=== PATIENT | male | born 1945 | race Caucasian/White ===

== ENCOUNTER 2021-08-11 11:48 | Outpatient (CLI) | payer MEDICARE, SELFPAY ==
--- NOTE | ~2021-08-11 | XR_ITS ---
EXAMINATION: XR lumbar spine 2-3V DATE: 08/11/2021 12:19 INDICATION: Low back pain TECHNIQUE: Anteroposterior and lateral views of the lumbar spine, and cone-down lateral view of the l umbosacral junction were obtained. COMPARISON: None. FINDINGS: There are 6 mm of retrolisthesis of L2 on L3 and 2 mm of anterolisthesis of L4 on L5. Bone alignment is otherwise normal. There is no fracture. There is severe loss of intervertebral disc spac e height at L2-3 and L5-S1 and moderate loss of intervertebral disc space height at L3-4 and L4-5. Th e vertebral body heights are maintained. 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 Calcified atherosclerosis is noted. Surgical clips in the right upper quadrant are likely from prior cholecystectomy. IMPRESSION: 1. Severe lumbar spondylosis without acute findings. Reviewed, dictated and finalized at location A.
== END 2021-08-11 11:49 | disposition home or self-care (01) ==
LOC: CHSIMG 11:56
PROVIDERS: PCP Internal Medicine; Visit Provider Internal Medicine
DX: M54.9 Dorsalgia, unspecified (principal); M47.816 Spondylosis without myelopathy or radiculopathy, lumbar region
CPT/HCPCS: 72100

== ENCOUNTER 2021-08-16 08:52 | Outpatient (RCR) | payer MEDICARE, SELFPAY ==
--- NOTE | 2021-08-17 09:22 | PTOPEVAL ---
Thank you for referring Ace Lakhani to [facility].? The patient is scheduled to be seen for therapy? ____x/week for ___ weeks. Please review, sign, date and return this plan of care RAYMOND. I agree with and certify that the following plan of care is medically necessary. Referring Physician Date Admitting Provider: Attending Provider: Michael Nelson MD Referring Provider: *PT Outpatient Evaluation Start: 08/16/21 09:10 Freq: Status: Active Protocol: Document 08/16/21 09:10 [facility] (Rec: 08/16/21 10:03 [facility] [id number]) Therapy Assessment Status Assessment Status Assessment Status Evaluation Evaluation Information Problem Diagnosis Low Back Pain Onset 08/12/21 Additional Evaluation Detail Oswestry = 8% Functionally Impaired Subjective Information Pt states that when he twists Query Text:As Reported By Patient/ that my legs are taken out Family from under me. He states that his back pain has continued to get worse over the past few months. He states that when he twists his back in bed that it is the worst. The pain is in the back, but his legs feel like they go limp. he reports he has had xrays of the lumbar spine. Prior Level of Function Comments Additional Prior Level of Function patient reports he has been Comments getting worse for the past few months. however, he reports since beginning his meds for back pain he has been feeling better. Pain Assessment Timing of Pain Assessment Timing of Pain Assessment Pre-Treatment Pain Scale Pain Scale Used Numeric (1 - 10) Self Report Pain Assessment Lower Back Reported Pain Level 2 Lowest Pain Intensity 2 Greatest Pain Intensity 9 Pain Score Pain Score 2: Self Report Interventions Used Interventions Used By Clinicians Activity or ADL's,Education, Exercise Cervical and Lumbar ROM Lumbar ROM Lumbar Flexion Active Ankle Query Text:Hands to: Lumbar Extension (0-40) 15 Query Text:Active in Degrees Lateral Flexion L = distal thigh Query Text:Active Hands to: R = knee jnt line Lateral Rotation Right (0-45) 40 Query Text:Active in Degrees Lateral Rotation Left (0-45) 40 Query Text:Active in Degrees Lower Extremity Range of Motio
--- NOTE | 2021-09-08 13:39 | PTOPEVAL ---
Thank you for referring Ace Lakhani to [facility].? The patient is scheduled to be seen for therapy? ____x/week for ___ weeks. Please review, sign, date and return this plan of care RAYMOND. I agree with and certify that the following plan of care is medically necessary. Referring Physician Date Admitting Provider: Attending Provider: Michael Nelson MD Referring Provider: *PT Outpatient Evaluation Start: 08/16/21 09:10 Freq: Status: Active Protocol: Document 09/08/21 08:00 [facility] (Rec: 09/08/21 13:39 [facility] [email or web address]) Therapy Assessment Status Assessment Status Assessment Status Discharge Evaluation Information Problem Diagnosis Low Back Pain Onset 08/12/21 Additional Evaluation Detail oswestry = 30% functionally declined Subjective Information patient reports he feels a Query Text:As Reported By Patient/ little better overall. he Family reports he has felt better after about every other traction therapy. he reports he continues to have increased pain with prolonged position activities. 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 Pain Assessment Timing of Pain Assessment Timing of Pain Assessment Assessment Pain Scale Pain Scale Used Numeric (1 - 10) Self Report Pain Assessment Lower Back Reported Pain Level 4 Pain Score Pain Score 4: Self Report Interventions Used Interventions Used By Clinicians Activity or ADL's,Education, Electrical Stimulation, Exercise,Heat Cervical and Lumbar ROM Lumbar ROM Lumbar Flexion Active Ankle Query Text:Hands to: Lumbar Extension (0-40) 20 Query Text:Active in Degrees Lumbar Lateral Flexion Right (0-40) 30 Query Text:Active in Degrees Lumbar Lateral Flexion Left (0-40) 30 Query Text:Active in Degrees Lateral Rotation Right (0-45) 40 Query Text:Active in Degrees Lateral Rotation Left (0-45) 40 Query Text:Active in Degrees Lumbar Comments no increased pain with arom lumbar mobility Lower Extremity Muscle Strength Testing Hip Strength Right Hip Flexion Strength 4+ Good + Hip Abduction Strength 4+ Good + Left Hip Flexion Strength 4+ Good + Hip Abduction Strength 4+ Good + Knee Strength Right Knee Flexion Strength 5 Normal Knee
== END 2021-09-08 17:41 | disposition home or self-care (01) ==
LOC: CHSPT 08:52
PROVIDERS: PCP Internal Medicine; Visit Provider Internal Medicine
DX: M54.50 Low back pain, unspecified (principal)
CPT/HCPCS: 97012; 97014; 97110; 97161; G0283